=== PATIENT | female | born 1975 | race Hispanic/Latino ===

== ENCOUNTER 2025-06-23 16:42 | Emergency (ER) | payer BC ==
[~2025-06-23] VITALS: Ht 154.9 cm; Wt 77.1 kg
[2025-06-23 18:29] LABS: IMMATURE GRANULOCYTE ABSOLUTE 0.01 K/uL (0-1); NUCLEATED RED BLOOD CELLS 0.0 % (0.0-0.19); PLATELET COUNT (AUTO) 181 K/uL (130-400); RED BLOOD CELL COUNT(AUTO) 4.86 MIL/uL (4.00-5.50); RED CELL DISTRIBUTION WIDTH 13.7 % (11.0-15.5); WHITE BLOOD COUNT (AUTO) 8.1 K/uL (4.8-10.8)
[2025-06-23 18:43] LABS: CREATININE 0.8 mg/dL (0.5-1.0); GLOMERULAR FILTR. RATE CALC 91.0 mL/min (>90); GLUCOSE,RANDOM 89.0 mg/dL (70-105); SODIUM SERUM 145.0 mmol/L (136-145); UREA NITROGEN, BLOOD 12.0 mg/dL (7-18)
--- NOTE | 2025-06-23 19:05 | ERN ---
ED Note History of Present Illness Stated Complaint: GENERALIZED NUMBNESS Chief Complaint: Numbness Time Seen by MD: 18:14 Time Seen by Midlevel: 18:15 Dictation: 49-year-old female presents to the emergency department due to report having numbness and tingling to the hands/fingers and the toes/feet that began earlier today. She states that she was breathing slightly fast when this occurred but the bleeding is now controlled. However, she states that she feels the same sensation since the onset of the symptoms. Patient states that she does have a history of call us with his calcium level due to her history of cancer of the th yroid. She states that this might be related to that. Upon initial evaluation, the patient presents in no acute distress. Emergency Care [employer]: None Past Medical History Past Medical History: Cancer, Hypothyroid Additional Past Medical Hx: SVT Surgical History: Cholecystectomy Surgical History Other: THYROIDECTOMY History: Not Applicable RN Note Reviewed/Agreed w/PFSH: Yes Review of System Dictation Neuro: Numbness and tingling of hands and feet Initial Vital Sign VS Vital Signs Date Time Temp Pulse Resp B/P (MAP) Pulse Ox O2 Delivery O2 Flow Rate FiO2 06/23/25 16:46 98.4 104 18 132/85 99 Room Air 0 Physical Exam Dictation General: awake, alert, NAD Head/Face: Normocephalic, atraumatic Eyes: PERRL, EOMI ENT: Oral mucosa moist Neck: Trachea midline, supple Cardiovascular: RRR, no edema Respiratory: Symmetrical, non-labored Abdomen: Soft, non-tender, non-distended, no guarding. Skin: Warm, dry, good turgor, no rash MS/Extremity: Pulses equal, no cyanosis, neurovascular intact, FROM Neuro: COAx4, GCS 15, steady gait, Psych: Normal behavior, mood, and affect normal Results (Laboratory/Radiology) Laboratory/Radiology Laboratory Tests Test 06/23/25 18:23 White Blood Count 8.1 K/uL (4.8-10.8) Red Blood Count 4.86 MIL/uL (4.00-5.50) Hemoglobin 13.7 g/dL (12.0-16.0) Hematocrit 41.7 % (36-48) Mean Corpuscular Volume 85.8 fL (79-99) Mean Corpuscular Hemoglobin 28.2 pg (27.0-33.0) Mean Corpuscular Hemoglobin Concent 32.9 g/dL (32.0-36.0) Red Cell Distribution Width 13.7 % (11.0-15.5) Platelet Count 181 K/uL (130-400) Mean Platelet Volume 12.6 fL (7.5-10.5) H Immature Granulocyte % (Auto) 0.1 % (0-1) Neutrophils (%) (Auto) 77.8 % (40.0-77.0) H Lymphocytes (%) (Auto) 13.6 % (21.0-51.0) L Monocytes (%) (Auto) 7.9 % (3.0-13.0) Eosinophils (%) (Auto) 0.2 % (0.0-8.0) Basophils (%) (Auto) 0.4 % (0.0-5.0) Neutrophils # (Auto) 6.3 K/uL (1.8-7.7) Lymphocytes # (Auto) 1.1 K/uL (1.0-4.8) Monocytes # (Auto) 0.6 K/uL (0.1-1.0) Eosinophils # (Auto) 0.02 K/uL (0.00-0.70) Basophils # (Auto) 0.03 K/uL (0.00-0.20) Absolute Immature Granulocyte (auto 0.01 K/uL (0-1) Nucleated Red Blood Cells 0.0 % (0.0-0.19) Sodium Level 145 mmol/L (136-145) Potassium Level 3.7 mmol/L (3.5-5.1) Chloride Level 106 mmol/L (101-111) Carbon Dioxide Level 32 mmol/L (21-32) Blood Urea Nitrogen 12 mg/dL (7-18) Creatinine 0.8 mg/dL (0.5-1.0) Glomerular Filtration Rate Calc 91 mL/min (>90) Random Glucose 89 mg/dL (70-105) Total Calcium 7.7 mg/dL (8.5-10.1) L Ionized Calcium 1.01 MMOL/L (1.15-1.33) L Labs Reviewed?: Yes ED Course ED Course Orders Procedure Category Date Status Time Cbc With Differential LAB 06/23/25 Complete 18:14 Basic Metabolic Panel LAB 06/23/25 Complete 18:14 Ionized Calcium LAB 06/23/25 Complete 18:14 Vital Signs Date Time Temp Pulse Resp B/P (MAP) Pulse Ox O2 Delivery O2 Flow Rate FiO2 06/23/25 16:46 98.4 104 18 132/85 99 Room Air 0 Medical Decision Making MDM MDM: Differential diagnosis: Hypocalcemia, electrolyte imbalance, numbness, tingling. Rationale: Tests considered and ordered secondary to shared decision making include: Previous outside records reviewed: Old ER visits. Risk of complication and/or morbidity or mortality of patient management: None Medications-Per medication reconciliation Need for hospitalization: Patient does not meet criteria for hospitalization. Need for emergency major/minor surgery: No There are no social concerns with this patient. Prescription drug management Prescriptions will include symptomatic care. After review of the calcium level with the patient she is encouraged to take some calcium carbonate with the [id number] for which the patient verbalized and agreed to the treatment plan of care. Patient's prior external medical records from other ER visits were reviewed by me as indicated. Prior testing and results from previous visits were reviewed. Prior tests were taken into account with medical decision making and resource utilization, independent historian/historians were used to obtain complete medical history. I independently interpreted the test that were performed, results were reviewed by me and considered findings on radiology if ordered. Medical management and examination interpretation discussions were had by me with other qualified healthcare professionals as indicated for the patient's care. DX & DISP Disposition: Discharge Departure Impression: Primary Impression: Hypocalcemia Additional Impression: Numbness and tingling Condition: Stable Referrals: SELF,REFERRAL (PCP) Time of Disposition: 19:48 SP HERMOSILLO Jun 23, 2025 19:05
[2025-06-23 20:06] VITALS: BP 118/80; PULSE 79; RESP 16; TEMP 97.7; O2SAT 98
== END 2025-06-23 20:08 | disposition home or self-care (01) ==
LOC: EDH 16:42
DX: E83.51 Hypocalcemia (principal); R20.2 Paresthesia of skin; R20.0 Anesthesia of skin; E03.9 Hypothyroidism, unspecified; Z90.49 Acquired absence of other specified parts of digestive tract; Z90.89 Acquired absence of other organs
CPT/HCPCS: 36415; 80048; 82330; 85025; 99283